=== PATIENT | female | born 2000 | race African-American/Black ===

== ENCOUNTER 2021-05-19 11:17 | Emergency (ER) | payer MEDICAID ==
[~2021-05-19] VITALS: Ht 160 cm; Wt 58.2 kg
[2021-05-19 11:19] VITALS: TEMP 99.1
[2021-05-19] MEDS ORDERED: PROAIR HFA0.09 MG/AC IH (11:22)
[2021-05-19 12:28] VITALS: BP 123/86; PULSE 96
== END 2021-05-19 13:04 | disposition home or self-care (01) ==
LOC: COL.ER 11:17
PROVIDERS: Nurse Practitioner Primary Care
DX: S71.031A Puncture wound without foreign body, right hip, initial encounter (principal); W33.01XA Accidental discharge of shotgun, initial encounter

== ENCOUNTER 2021-07-28 02:51 | Emergency (ER) | payer MEDICAID ==
[~2021-07-28] VITALS: Ht 160 cm; Wt 61.4 kg
[~2021-07-28 02:51] MED LIST: PROAIR HFA0.09 MG/AC IH
[2021-07-28 02:52] VITALS: TEMP 98.4
[2021-07-28 03:03] LABS: HEMATOCRIT 41.8 % (37.0-47.0); HEMOGLOBIN 13.7 g/dl (12.5-16.0); MEAN CELL VOLUME 92 fl (80.0-100.0); MEAN CORPUSCULAR HEMOGLOBIN 30 pg (27-31); MEAN CORPUSCULAR HGB CONC 33 g/dl (33.0-37.0); MEAN PLATELET VOLUME 11.8 fl (7.4-10.4); PLATELET COUNT 230 K/mm3 (130-400); RED BLOOD COUNT 4.53 M/mm3 (4.10-5.30); REDCELL DISTRIBUTION WIDTH-CV 12.1 % (11.5-14.5)
[2021-07-28 03:18] LABS: CALCIUM 9.7 mg/dL (8.4-10.2); CREATININE, serum 1.01 mg/dL (0.57-1.11); POTASSIUM 3.6 mmol/L (3.5-4.5)
[2021-07-28 05:02] VITALS: BP 121/84; PULSE 83
== END 2021-07-28 05:03 | disposition home or self-care (01) ==
LOC: COL.ER 02:51
PROVIDERS: Emergency Medicine
DX: S81.841A Puncture wound with foreign body, right lower leg, initial encounter (principal); Z28.310 Unvaccinated for COVID-19; X93.XXXA Assault by handgun discharge, initial encounter; Y92.099 Unspecified place in other non-institutional residence as the place of occurrence of the external cause
CPT/HCPCS: J2270

== ENCOUNTER 2023-02-28 01:19 | Outpatient (CLI) | payer MEDICAID ==
[~2023-02-28] VITALS: Ht 160 cm; Wt 75.0 kg
[~2023-02-28 01:19] MED LIST changes: +PREDNISONE50 MG PO
--- NOTE | 2023-02-28 01:25 | NUR ---
AMBULATED TO LR ACCOMPANIED BY SIG OTHER AND STAFF. ORIENTED TO LR AND CHANGED INTO GOWN. PT HERE WITH COMPLAINT OF CONTRACTIONS. PT STATES SHE HAS A REPEAT C-SEC SCHEDULED FOR THURSDAY AT ANOTHER LOCATION. PT DENIES LOF/VAG BLEEDING. PT ENDORSES MOVEMENT. PT DENIES COMPLICATIONS WITH . PT COMPLETED RELEASE OF RECORDS FORM FOR RECORDS TO BE OBTAINED.
[2023-02-28] MEDS ORDERED: PRENATAL TABLET PO (01:41)
[2023-02-28] MEDS ORDERED: NATURAL IRON65 MG PO (01:42)
[2023-02-28 02:00] VITALS: BP 128/75; PULSE 86
--- NOTE | 2023-02-28 03:10 | NUR ---
0258- SVE UNCHANGED. DR GODWIN STATED THAT IF SVE UNCHANGED AT 1 HOUR PT MAY DC HOME. MONITORING DCd AND PT TO CHANGE INTO OWN CLOTHES WHILE DISCHARGE PAPERWORK PREPARED. 0310- DISCHARGE INSTRUCTIONS REVIEWED WITH PT, INSTRUCTED TO RETURN TO THE UNIT IF HER WATER BREAKS, SHE HAS VAGINAL BLEEDING, OR HER CTXs BECOME MORE CONSISTENT/PAINFUL. QUESTIONS ENCOURAGED AND ANSWERED, UNDERSTANDING VERBALIZED. PT OFF THE UNIT WITH FOB AMBULATORY.
== END 2023-02-28 03:10 | disposition home or self-care (01) ==
LOC: LDRO 01:19
DX: Z34.93 Encounter for supervision of normal pregnancy, unspecified, third trimester (principal); Z3A.39 39 weeks gestation of pregnancy